=== PATIENT | male | born 1990 | race Hispanic/Latino ===

== ENCOUNTER → 2025-05-24 11:07 | Emergency (ER) | payer SELFPAY ==
[2025-05-24 11:44] VITALS: BP 117/72
[2025-05-24 12:03] LABS: Hematocrit 42.6 % (39.0-52.0); Hemoglobin 14.6 g/dL (13.0-18.0); Mean Corp Hgb Conc. 34.3 g/dL (33.0-37.0); Mean Corpuscular Volume 86.2 fL (80.0-94.0); Nucleated Red Blood Cells % 0 % (-); Platelet Count 261 10^3/uL (130-400); Red Cell Dist. Width 12.9 % (11.5-14.5)
[2025-05-24 12:16] LABS: ALT (SGPT) 25 U/L (0-50); AST (SGOT) 20 U/L (17-59); Albumin 4.5 g/dl (3.5-5.0); Alkaline Phosphatase 57 U/L (38-126); Blood Urea Nitrogen 14 mg/dl (9-20); Calcium 9.5 mg/dl (8.4-10.2); Carbon Dioxide 25 mmol/L (22-30); Chloride 105 mmol/L (98-107); Glucose 88 mg/dl (70-99); Potassium 4.0 mmol/L (3.5-5.1); Sodium 136 mmol/L (135-145); Total Protein 7.2 g/dl (6.3-8.2); eGFR > 60.00
--- NOTE | 2025-05-24 13:41 | ED.GENMED ---
History of Present Illness
General
Chief Complaint: Male Genito-Urinary Symptoms
Source: patient
Exam Limitations: none
Time Seen by Provider: 05/24/25 13:35
History of Present Illness
History of Present Illness:
34-year-old male complaining of right inguinal pain. Is been there for months. Pain is there all the time. Progressive in nature. He feels there is a lump there. No nausea or vomiting no change in bowels no flank or back pain no fever or
chills. No history of abdominal surgeries.
Past History
Past History
ED Past Medical History: NIDDM (Diet controlled)
Review of Systems
Review of Systems
All Other Systems: Not applicable
Constitutional: Denies fever
Respiratory: Reports no symptoms
Cardiac: Reports no symptoms
Phy Exam
Physical Exam
Physical Exam:
GENERAL: Alert and oriented in no apparent distress
EYE: Orbits normal.
NECK: Supple
CARDIAC: Regular rate and rhythm without any obvious murmurs.
LUNGS: Clear breath sounds,normal
ABDOMEN: Soft, without focal tenderness or distention. No CVA tenderness tenderness at the right inguinal area with mild swelling. More noticeable on standing. Reducible.
NEUROLOGICAL: Alert and oriented , grossly non-focal
SKIN: Warm and dry, no rash or lesion, no discoloration, skin intact.
MUSCULOSKELETAL: No edema,no deformity.Good color
PSYCH: Normal and appropriate interaction.
Course
Orders/Labs/Results
Orders:
Orders
05/24/25 11:52
Complete Blood Count/With Diff Urgent
Comprehensive Metabolic Panel Urgent
Lactic Acid Urgent
05/24/25 13:41
CT Abd/pel W Iv And Oral Contr Urgent
Comment:
Reason For Exam: Right inguinal pain
IV Insert/Care/Rem.- Treatment PRN
Iohexol [Omnipaque] See Protocol PO NOW STA
05/24/25 14:52
Ketorolac [Toradol] 15 mg IV NOW STA
05/24/25 11:52
05/24/25 11:52
Vital Signs
Initial and Last Documented VS:
Initial Vital Signs
Temp Pulse Resp BP Pulse Ox
98.2 F 76 18 117/72 100
05/24/25 11:44 05/24/25 11:44 05/24/25 11:44 05/24/25 11:44 05/24/25 11:44
Last Documented Vital Signs
Temp Pulse Resp BP Pulse Ox
98.2 F 56 20 125/79 100
05/24/25 11:44 05/24/25 15:17 05/24/25 15:17 05/24/25 15:17 05/24/25 15:17
MDM/Problems Addressed
Differential Diagnosis Includes:
Symptoms most consistent with a right inguinal hernia. Clinically not incarcerated. Labs stable. Will confirm with CT scan.
*Radiology
Radiology exam reviewed: radiology read reviewed (Small scrotal hydroceles. Grade 1 anterior listhesis L5 on S1 spondylolysis)
*Pulse Oximetry
SaO2: 100
Oxygen Mode of Delivery: Room air
Patient hypoxic: no
*Critical Care Note
Total Time (30-74mins, 75-104mins- exclusive of procedures): Not Applicable
Update Note
Update Note:
Patient medically stable and nontoxic. I clinically thought I felt a small hernia and he has a picture showing some localized swelling that seems worse when working. However no CT findings to support hernia. Either this is some small hernia that
we cannot appreciate on CT or possibly an orthopedic issue related to a groin tendinous attachment. Will refer for follow-up
ED Attending Note
-
Portions of this chart may have been created with voice recognition software.� Occasional wrong word or��sound alike� substitutions may have occurred due to the inherent limitations of voice recognition software.
Discharge Plan
Departure
Patient Disposition: Home (Routine Discharge)
Date of Disposition: 05/24/25
Time of Disposition: 17:11
Patient with high blood pressure during this ER visit?: No
Discharge Problem:
Right groin pain, Small hydroceles
Instructions: Hydrocele, Groin Strain (DC)
Referrals:
Curt Kim MD [Active, Urology] - Next open appointment
NONE,* [Family Provider, Internal Medicine]
Edu Chester MD [Active, Surgical] - Next open appointment
Activity Restrictions/Additional Instructions:
Advil or Motrin for pain
The first physician listed is a general surgeon. The second is urology
No heavy lifting at work
Return with increased pain swelling fever nausea vomiting or any other concerning symptoms
Interventions
Interventions:
*Risk Screen - Suicide Last Done: 05/24/25 11:46
*General Assessment Last Done: 05/24/25 14:15
*Neglect/Abuse Screening Last Done: 05/24/25 11:46
*ED- Fall Risk Assessment Last Done: 05/24/25 14:15
*ED COVID-19 Vaccine History Last Done: 05/24/25 14:15
*ED Influenza Vaccine History Last Done: 05/24/25 14:15
*Nursing Disposition Last Done: 05/24/25 17:27
ED-Male Genitourinary Assessment Last Done: 05/24/25 14:15
Discharge Date and Time
Print Language: MALAGASY
[2025-05-24] MEDS: OMNIPAQUE 50 ML PO (13:57)
[2025-05-24] MEDS: TORADOL 15 MG IV (15:13)
[2025-05-24 15:17] VITALS: BP 125/79
== END | disposition home or self-care (01) ==
LOC: EMR 11:07
PROVIDERS: Emergency Medicine; EMERGENCY PHYSICIAN Emergency Medicine
DX: R10.31 Right lower quadrant pain (principal); E11.9 Type 2 diabetes mellitus without complications
CPT/HCPCS: 99284; 96374; 74177; 80053; 83605; 85025; Q9967

== ENCOUNTER 2025-06-16 06:08 | Day surgery (SDC) | payer SELFPAY ==
[2025-06-16] VITALS (9 sets, daily range): BP systolic 109–131; BP diastolic 67–81
[2025-06-16] MEDS: NORMOSOL-R/PLASMALYTE-A 1000 IV (06:38)
[2025-06-16] MEDS: TYLENOL 1000 MG PO (06:38)
[2025-06-16 06:44] LABS: Glucose - Point of Care 102 mg/dl (70-99)
--- NOTE | 2025-06-16 06:52 | W.SUR.PREOP ---
Pre-Operative Surgical Note
-
I have examined this patient prior to the performance of the scheduled procedure.
The patient's condition is unchanged from the time of the current History and
Physical and the patient is able to undergo the scheduled procedure.
[2025-06-16 10:08] LABS: Glucose - Point of Care 192 mg/dl (70-99)
--- NOTE | 2025-06-16 10:08 | W.IMMPOSTOP ---
Surgical Immed Post Op Note
-
Primary Surgeon: Edu Chester MD
Assisting Surgeon: None
Pre-op Diagnosis: Right inguinal hernia
Post-op Diagnosis: Bilateral inguinal hernias, bilateral spermatic cord lesions
Procedure Performed:
1. Robotic bilateral inguinal hernia repair with mesh
2. Excision of bilateral spermatic cord lesions (cord lipomas)
Anesthesia Type: General
Specimen / Cultures: Bilateral cord lipomas
Estimated Blood Loss: 11 cc
Complications: None
Operative Findings: The patient was noted to have bilateral indirect inguinal hernias. No direct or femoral components. He had bilateral cord lipomas, right greater than left, both of which were excised. His right testicular packet was also quite
fatty and was partially debulked. After achieving the critical view of the MPO bilaterally, the spaces were reinforced with a Bard large 3D max uncoated polypropylene mesh and secured at coopers, superior laterally and superior medially.
--- NOTE | 2025-06-16 10:10 | OR.RPT ---
Operative Report
Operative Report
Patient Name: Amanuel Berry
: 1990
Date of Operation: 06/16/2025
Preoperative Diagnosis: Reducible Inguinal hernia, right
Postoperative Diagnosis: Bilateral inguinal hernias, bilateral spermatic cord lesions
Procedure(s):
1. Robotic Inguinal Hernia Repair with mesh, bilateral (STEVE approach)
2. Excision of lesion of a spermatic cord lipoma x 2 ([id number])
Surgeon(s):
Dr. Chester
Supervisor Process Testing(s):
MAYLIN Rm
Anesthesia: General
Estimated Blood Loss: 11 cc
Urine Output: None
Drains/Lines/Implants: Large 3D Max Bard mid weight uncoated polypropylene mesh x 2
Specimens: Bilateral cord lipomas
Indication for surgery: The patient has a history of groin pain and noted on exam to have a right, possible left inguinal Hernia(s). Following review of therapeutic options they have elected to undergo a minimally invasive repair.
Operative Findings: The patient was noted to have bilateral indirect inguinal hernias. No direct or femoral components. He had bilateral cord lipomas, right greater than left, both of which were excised. His right testicular packet was also quite
fatty and was partially debulked. After achieving the critical view of the MPO bilaterally, the spaces were reinforced with a Bard large 3D max uncoated polypropylene mesh and secured at coopers, superior laterally and superior medially.
Details of the operation:
The patient was brought to the Operating Room and placed in the supine position with the arms tucked. IV antibiotics were infused and Venodyne stockings placed. Following uneventful induction of general endotracheal anesthesia, an orogastric tube
was placed. The abdomen was prepped and draped in the usual sterile fashion. The abdomen was entered using a Veress technique which required 1 pass, pneumoperitoneum to 15 mmHg was obtained without difficulty. An 8mm trochar was passed through the
abdominal wall roughly 20 cm cephalad to the inguinal canal. We then confirmed that no inadvertent injury was made while passing the trocar or Veress needle. We then placed two additional 8 mm ports in the left upper and right upper quadrants. We
then docked the robot with a Prograsper in the left hand port and monopolar scissors in the right. Bilateral indirect inguinal hernias were noted right greater than left. We then began by creating a flap on the right side at the level of the ASIS
laterally working our way medially to the medial umbilical fold. Staying onto the peritoneum we were able to circumferentially dissect around the hernia sac and and peel it off of the underlying spermatic cord and testicular vessels, taking care to
preserve them. Medially we identified the midline pubis as well as Nguyễn's ligament and ensured to dissect 2 cm below the pubic rim over the bladder. After exposure of the entire myopectineal orifice on the right side we identified the large
indirect inguinal hernia, no direct or femoral components, a large cord lipoma, primarily emanating from the retroperitoneal fat which was reduced and resected. The testicular packet on the side was noted to be fatty and partially debulked. We
then repeated the exact same dissection on the contralateral/left side here we identified a small indirect inguinal hernia, again with no direct or femoral components. There was also a small cord lipoma which was resected.
After achieving the critical view of the MPO bilaterally we then fixated 2 large 3D max mid weight uncoated polypropylene meshes at coopers medially, superior laterally and superior medially. The flap was then closed with a running 2-0 barbed
monocryl suture ensuring that the tail was cut flush with the medial fat pad so that no barbs were exposed. During the closure of the flap the Veress needle was inserted and 20 cc of quarter percent Marcaine was instilled. The area in the flap
cavity was then evacuated of air confirming that the mesh was flush and there were no folds. A small rent in the peritoneum was noted and closed with 2-0 Vicryl x2. All needles and instruments were then removed and the robot was undocked. The
abdomen was then desufflated, and pneumoperitoneum evacuated. All skin sites were then closed with 4-0 Monocryl followed by Dermabond. Counts were correct and overall, the patient tolerated the procedure well and was taken to the Recovery Room
postoperatively in stable condition.
I was the attending physician and performed the procedure with assistance of the PA above. The assistance of MAYLIN Rm was required due to the complexity of the procedure. During the procedure Shauna assisted with port placement, instrument
and needle exchanges, and closure of the wound. I was present for all portions of the case, excluding skin closure.
Edu Chester MD
[2025-06-16] MEDS: DILAUDID 0.5 MG IV ×2 (10:16→10:40)
[2025-06-16] MEDS: NOVOLOG vial 1 UNITS SC (10:56)
== END 2025-06-16 13:05 | disposition home or self-care (01) ==
LOC: SDS 06:08
PROVIDERS: ATTENDING PHYSICIAN Surgery
DX: K40.20 Bilateral inguinal hernia, without obstruction or gangrene, not specified as recurrent (principal); N49.0 Inflammatory disorders of seminal vesicle; D17.6 Benign lipomatous neoplasm of spermatic cord
CPT/HCPCS: 49650; 55520; 82962; 88304; C1781